=== PATIENT | female | born 1975 | race African-American/Black ===

== ENCOUNTER 2016-09-27 19:21 | Emergency (ER) | payer OTHER ==
[~2016-09-27] VITALS: Ht 165.1 cm; Wt 64.0 kg
[2016-09-27 20:50] LABS: MCH 24.7 PG (29.0-34.0); MCV 79.7 FL (83-99); MEAN PLAT.VOLUME 10.1 uM^3 (9.5-12.4); PLATELET COUNT 268 K/uL (156-360); RBC DIS.WIDTH-CV 15.2 % (11.8-14.6); RBC DIS.WIDTH-SD 43.5 % (39-53); RED BLOOD COUNT 5.02 M/uL (3.80-5.20)
[2016-09-27 21:33] LABS: ADD MIUA? YES; BILIRUBIN NEGATIVE; BLOOD SMALL; COLOR STRAW ((YELLOW)); GLUCOSE (STRIP) NEGATIVE; KETONES NEGATIVE; LEUKOCYTES NEGATIVE; NITRITE NEGATIVE; PROTEIN (STRIP) 100; SPECIFIC GRAVITY 1.004 (1.000-1.030); UROBILINOGEN 0.2 MG/DL (0.2-1.0)
[2016-09-27 21:36] LABS: BACTERIA RARE /HPF; EPITHELIAL CELLS RARE /HPF; MUCUS NONE SEEN /LPF; RED BLOOD CELLS 0-5 /HPF (0-5); UCUL ADDED? NO; WHITE BLOOD CELLS 0-5 /HPF (0-5)
[2016-09-27 21:50] LABS: CHLORIDE 108 mEq/L (99-109); POTASSIUM 3.5 mEq/L (3.7-5.4); SODIUM 142 mEq/L (136-147)
[2016-09-27 21:52] LABS: GLUCOSE 103 mg/dL (70-99)
[2016-09-27 21:53] LABS: ANION GAP 10 MEQ/L (2-14)
[2016-09-27 21:56] LABS: UREA NITROGEN (BUN) 6 mg/dL (9-23)
[2016-09-27 21:57] LABS: GFR ESTIMATE (CALCULATED) > 59 mL/min/
[2016-09-27 22:06] LABS: QUANTITATIVE HCG < 4.0 MIU/ML
[2016-09-27] MEDS ORDERED: REGLAN10 MG PO (23:42)
[2016-09-27] MEDS ORDERED: HYDROCHLOROTHIA25 MG PO (23:42)
[2016-09-27] MEDS ORDERED: FIORICET 50-301 EACH PO (23:42)
[2016-09-27 23:56] VITALS: BP 153/93
== END 2016-09-28 | disposition home or self-care (01) ==
LOC: EME 19:21
PROVIDERS: Physician Assistant
DX: I10 Essential (primary) hypertension (principal); R51 Headache; T46.5X6A Underdosing of other antihypertensive drugs, initial encounter; Z91.128 Patient's intentional underdosing of medication regimen for other reason; Z88.0 Allergy status to penicillin
CPT/HCPCS: 70450; 80048; 81003; 84702; 85027; 99281; 99285; J1100; J1200; J1885; J2765; J7040

== ENCOUNTER 2016-10-02 04:41 | Emergency (ER) | payer OTHER ==
[~2016-10-02] VITALS: Ht 165.1 cm; Wt 62.5 kg
[~2016-10-02 04:41] MED LIST: FIORICET 50-301 EACH PO; HYDROCHLOROTHIA25 MG PO; REGLAN10 MG PO
[2016-10-02] MEDS ORDERED: CATAPRES0.1 MG PO (05:11)
[2016-10-02] MEDS ORDERED: LOPRESSOR50 MG PO (05:11)
[2016-10-02 05:41] LABS: HEMATOCRIT 39.1 % (36.0-46.0); MCH 25.2 PG (29.0-34.0); MCV 78.7 FL (83-99); MEAN PLAT.VOLUME 10.1 uM^3 (9.5-12.4); PLATELET COUNT 293 K/uL (156-360); RBC DIS.WIDTH-CV 14.6 % (11.8-14.6); RBC DIS.WIDTH-SD 41.9 % (39-53); RED BLOOD COUNT 4.97 M/uL (3.80-5.20); WHITE BLOOD COUNT 5.2 K/uL (4.1-10.2)
[2016-10-02 05:48] LABS: CHLORIDE 106 mEq/L (99-109); POTASSIUM 3.3 mEq/L (3.7-5.4); SODIUM 139 mEq/L (136-147)
[2016-10-02 05:50] LABS: GLUCOSE 114 mg/dL (70-99)
[2016-10-02 05:51] LABS: ANION GAP 12 MEQ/L (2-14)
[2016-10-02 05:52] LABS: TOTAL BILIRUBIN 0.3 mg/dL (0.0-1.0)
[2016-10-02 05:53] LABS: ALKALINE PHOSPHATASE 64 IU/L (3-129)
[2016-10-02 05:54] LABS: GFR ESTIMATE (CALCULATED) > 59 mL/min/
[2016-10-02 05:55] LABS: UREA NITROGEN (BUN) 11 mg/dL (9-23)
[2016-10-02 05:57] LABS: LIPASE 8 U/L (1.0-51.0)
[2016-10-02 06:04] LABS: QUANTITATIVE HCG < 4.0 MIU/ML
[2016-10-02 08:57] LABS: ADD MIUA? NO; BILIRUBIN NEGATIVE; BLOOD NEGATIVE; COLOR YELLOW ((YELLOW)); GLUCOSE (STRIP) NEGATIVE; KETONES NEGATIVE; LEUKOCYTES NEGATIVE; NITRITE NEGATIVE; PROTEIN (STRIP) 30; SPECIFIC GRAVITY 1.004 (1.000-1.030); UCUL ADDED? NO; UROBILINOGEN 0.2 MG/DL (0.2-1.0)
[2016-10-02] MEDS ORDERED: ANTIVERT25 MG PO (09:11)
[2016-10-02] MEDS ORDERED: BENTYL20 MG PO (09:11)
[2016-10-02 09:42] VITALS: BP 119/79
== END 2016-10-02 09:43 | disposition home or self-care (01) ==
LOC: EME 04:41
PROVIDERS: Emergency Medicine
DX: R10.10 Upper abdominal pain, unspecified (principal); E87.6 Hypokalemia; R42 Dizziness and giddiness; R11.2 Nausea with vomiting, unspecified; R19.7 Diarrhea, unspecified; I10 Essential (primary) hypertension
CPT/HCPCS: 76705; 80053; 81003; 83690; 84702; 85027; 93005; 99281; 99284; J1885; J2405; J7030

== ENCOUNTER 2017-10-27 10:39 | Emergency (ER) | payer OTHER ==
[~2017-10-27] VITALS: Ht 165.1 cm; Wt 64.0 kg
[~2017-10-27 10:39] MED LIST changes: +ANTIVERT25 MG PO; +BENTYL20 MG PO; +CATAPRES0.1 MG PO; +LOPRESSOR50 MG PO
[2017-10-27 11:53] LABS: APPEARANCE CLEAR ((CLEAR)); BILIRUBIN NEGATIVE; BLOOD NEGATIVE; COLOR YELLOW ((YELLOW)); GLUCOSE (STRIP) NEGATIVE; KETONES NEGATIVE; LEUKOCYTES NEGATIVE; NITRITE NEGATIVE; PROTEIN (STRIP) 30; SPECIFIC GRAVITY 1.003 (1.000-1.030); UCUL ADDED? NO; UROBILINOGEN 0.2 MG/DL (0.2-1.0)
[2017-10-27 12:23] LABS: HEMATOCRIT 38.6 % (36.0-46.0); HEMOGLOBIN 11.8 G/DL (11.9-15.5); MCH 24.8 PG (29.0-34.0); MCHC 30.6 G/DL (30.0-36.0); MCV 81.1 FL (83-99); PLATELET COUNT 313 K/uL (156-360); RBC DIS.WIDTH-SD 47.7 % (39-53); RED BLOOD COUNT 4.76 M/uL (3.80-5.20); WHITE BLOOD COUNT 4.4 K/uL (4.1-10.2)
[2017-10-27 12:32] LABS: CHLORIDE 107 mEq/L (99-109); POTASSIUM 3.7 mEq/L (3.7-5.4); SODIUM 137 mEq/L (136-147)
[2017-10-27 12:34] LABS: GLUCOSE 95 mg/dL (70-99)
[2017-10-27 12:38] LABS: CREATININE 0.9 mg/dL (0.6-1.3); GFR ESTIMATE (CALCULATED) > 59 mL/min/; UREA NITROGEN (BUN) 9 mg/dL (9-23)
[2017-10-27 12:46] LABS: QUANTITATIVE HCG < 4.0 MIU/ML
[2017-10-27 12:50] LABS: TROP-I INTERPRETATION NEGATIVE; TROPONIN-I < 0.01 ng/mL (0.0-0.30)
[2017-10-27 13:33] VITALS: BP 132/91
== END 2017-10-27 13:34 | disposition home or self-care (01) ==
LOC: EME 10:39
PROVIDERS: Physician Assistant
DX: R55 Syncope and collapse (principal); R11.10 Vomiting, unspecified; R00.0 Tachycardia, unspecified; I10 Essential (primary) hypertension; Z88.0 Allergy status to penicillin
CPT/HCPCS: 71046; 80048; 81003; 84484; 84702; 85027; 93005; 99281; 99283